=== PATIENT | male | born 1960 | race African-American/Black ===

== ENCOUNTER 2019-10-17 19:52 | Inpatient (IN) ==
[2019-10-17] MEDS ORDERED: ONDANSETRON 4 MG/2 ML VIAL IV STA (22:17)
[2019-10-17] MEDS ORDERED: SODIUM CHLORIDE 0.9% 500 ML IV STA (22:17)
[2019-10-17 23:00] LABS: Basophils % 0.2 % (0.0-0.8); Eosinophils % 0.1 % (0.00-10.9); Hematocrit 31.4 VOL% (42.0-52.0); Hemoglobin 9.5 GM/DL (14.0-18.0); Immature Granulocytes % 0.8 %; Immature Granulocytes Absolute 0.08 #; Lymphocytes # 1.2 10*3/uL (1.4-4.0); Lymphocytes % 12.5 % (21.2-54.2); Mean Corpuscular HGB Conc 30.3 GM/DL (32-36); Mean Corpuscular Volume 85.3 FL (87-102); Mean Platelet Volume 11.7 FL (9.6-12.0); Monocytes % 16.3 % (1.7-12.7); Neutrophils % 70.1 % (38.7-73.9); Platelet Count 266 T/CUMM (130-400); Red Blood Count 3.68 MC/CUMM (3.8-5.5); Red Cell Distribution Width 15.2 % (9.3-17.3); White Blood Count 9.8 T/CUMM (4-12)
[2019-10-17 23:18] LABS: INR 1.2; PT Patient Result 12.4 SECS (9.8-11.9); Partial Thromboplastin Time 28.2 SECS (23.9-33.8)
[2019-10-17 23:22] LABS: Alanine Aminotransferase 38 U/L (16-61); Albumin 2.5 G/DL (3.4-5.0); Alkaline Phosphatase 94 U/L (45-117); Aspartate Amino Transferase 49 U/L (0-37); Blood Urea Nitrogen 15 MG/DL (7-18); Calcium 8.9 MG/DL (8.5-10.1); Estimated Glom Filtration Rate 61 ML/MIN; Ferritin 1118.5 ng/ml (26-388); Glucose 106 MG/DL (74-106); Osmolality,Calculated 266.4 MOS/KG (273-304); Total Protein 9.8 G/DL (6.4-8.3); Troponin I < 0.015 NG/ML (0.00-0.045)
[2019-10-18] MEDS ORDERED: AZITHROMYCIN INJ 500 MG in SODIUM CHLORIDE 0.9% 250 ML IV STA (00:04)
[2019-10-18 00:22] LABS: Band Neutrophils 1 % (0-10); Lymphocytes 14 % (20-55); Segmented Neutrophils 70 % (50-85); Total Cells Counted 100
[2019-10-18 00:23] LABS: Anisocytosis 1+; Hypochromasia 1+; Platelet Estimate Normal
[2019-10-18 00:42] LABS: Apearance,Urine CLOUDY (Clear); Bilirubin,Urine Negative (Negative); Blood, Urine Negative (Negative); Glucose,Urine (UA) Negative (Negative); Ketones,Urine Negative (Negative); Mucus,Urine Occasional /LPF (Occasional); Nitrite,Urine Negative (Negative); Protein,Urine 100 MG/DL; RBC,Urine 55 /HPF (0-4); Urine Color Amber (Yellow); Urine Specific Gravity 1.019 (1.001-1.035); WBC,Urine 2478 /HPF (0-6)
[2019-10-18 01:26] LABS: Barbiturates Screen,Urine Negative (Negative); Benzodiazepines Screen,Urine Negative (Negative); Cannabinoid Screen,Urine Negative (Negative); Opiate Screen,Urine Negative (Negative); Phencyclidine Screen,Urine Negative (Negative)
[2019-10-18] MEDS ORDERED: ACETAMINOPHEN 325 MG TABLET PO PRN (02:59)
[2019-10-18] MEDS ORDERED: ONDANSETRON 4 MG/2 ML VIAL IV PRN (02:59)
[2019-10-18] MEDS ORDERED: DOCUSATE SODIUM 100 MG CAPSULE PO PRN (02:59)
[2019-10-18] MEDS: SODIUM CHLORIDE 0.9% 1,000 ML IV SCH ×3 (04:05→20:01)
[2019-10-18] MEDS: PIPERACILLIN/TAZOBACTAM 3,375 MG in SODIUM CHLORIDE 0.9% 100 ML IV SCH ×3 (04:10→20:00)
[2019-10-18] MEDS: ENOXAPARIN 40 MG/0.4 ML SYRINGE SUBCUT SCH (04:15)
[2019-10-18 08:20] LABS: Basophils % 0.1 % (0.0-0.8); Eosinophils % 0.5 % (0.00-10.9); Hematocrit 27.3 VOL% (42.0-52.0); Hemoglobin 8.2 GM/DL (14.0-18.0); Immature Granulocytes % 0.7 %; Immature Granulocytes Absolute 0.06 #; Lymphocytes # 1.1 10*3/uL (1.4-4.0); Lymphocytes % 13.4 % (21.2-54.2); Mean Corpuscular Volume 84.8 FL (87-102); Mean Platelet Volume 11.4 FL (9.6-12.0); Monocytes % 16.1 % (1.7-12.7); Neutrophils % 69.2 % (38.7-73.9); Platelet Count 239 T/CUMM (130-400); Red Blood Count 3.22 MC/CUMM (3.8-5.5); White Blood Count 8.2 T/CUMM (4-12)
[2019-10-18 08:40] LABS: Band Neutrophils 9 % (0-10); Eosinophils 1 % (0-10); Lymphocytes 13 % (20-55); Platelet Estimate Normal; Segmented Neutrophils 61 % (50-85); Total Cells Counted 100
[2019-10-18 08:41] LABS: Anisocytosis 1+; Hypochromasia 1+
[2019-10-18 08:49] LABS: % Iron Saturation 10.3 % (18-50); Calcium 8.2 MG/DL (8.5-10.1); Ferritin 972.1 ng/ml (26-388); Osmolality,Calculated 275.5 MOS/KG (273-304)
[2019-10-18 09:51] LABS: Sedimentation Rate-Westergren 122 MM/HR (0-20)
[2019-10-18 16:17] LABS: Folate 10.6 NG/ML (5.4-24.0); Vitamin B12 807 PG/ML (211-911)
[2019-10-18] MEDS: FERROUS SULFATE 325 MG TABLET PO SCH (22:15)
[2019-10-19] MEDS: SODIUM CHLORIDE 0.9% 1,000 ML IV SCH ×3 (04:00→21:00)
[2019-10-19] MEDS: PIPERACILLIN/TAZOBACTAM 3,375 MG in SODIUM CHLORIDE 0.9% 100 ML IV SCH ×3 (04:00→22:22)
[2019-10-19] MEDS: ENOXAPARIN 40 MG/0.4 ML SYRINGE SUBCUT SCH (04:00)
[2019-10-19 05:51] LABS: Basophils % 0.3 % (0.0-0.8); Eosinophils # 0.2 10*3/uL (0.0-0.87); Hematocrit 27.4 VOL% (42.0-52.0); Immature Granulocytes % 0.3 %; Immature Granulocytes Absolute 0.02 #; Lymphocytes # 1.2 10*3/uL (1.4-4.0); Lymphocytes % 20.3 % (21.2-54.2); Mean Corpuscular HGB Conc 29.2 GM/DL (32-36); Mean Corpuscular Volume 86.7 FL (87-102); Mean Platelet Volume 11.8 FL (9.6-12.0); Monocytes % 16.2 % (1.7-12.7); Neutrophils % 58.9 % (38.7-73.9); Platelet Count 222 T/CUMM (130-400); Red Blood Count 3.16 MC/CUMM (3.8-5.5); Red Cell Distribution Width 15.2 % (9.3-17.3); White Blood Count 5.8 T/CUMM (4-12)
[2019-10-19 06:09] LABS: Calcium 7.8 MG/DL (8.5-10.1); Osmolality,Calculated 280.1 MOS/KG (273-304)
[2019-10-19 06:28] LABS: Band Neutrophils 3 % (0-10); Eosinophils 7 % (0-10); Lymphocytes 16 % (20-55); Platelet Estimate Normal; Segmented Neutrophils 60 % (50-85); Total Cells Counted 100
[2019-10-19 06:29] LABS: Anisocytosis 1+; Hypochromasia Slight
[2019-10-19 06:30] LABS: Poikilocytosis Slight
[2019-10-19] MEDS: FERROUS SULFATE 325 MG TABLET PO SCH ×2 (08:32→21:00)
[2019-10-19] MEDS: TAMSULOSIN 0.4 MG CAPSULE PO SCH (08:32)
[2019-10-20] MEDS: ENOXAPARIN 40 MG/0.4 ML SYRINGE SUBCUT SCH (03:36)
[2019-10-20] MEDS: PIPERACILLIN/TAZOBACTAM 3,375 MG in SODIUM CHLORIDE 0.9% 100 ML IV SCH ×2 (03:36→13:02)
[2019-10-20] MEDS: SODIUM CHLORIDE 0.9% 1,000 ML IV SCH ×2 (04:36→22:53)
[2019-10-20] MEDS: FERROUS SULFATE 325 MG TABLET PO SCH ×2 (08:32→21:35)
[2019-10-20] MEDS: TAMSULOSIN 0.4 MG CAPSULE PO SCH (08:32)
[2019-10-20] MEDS ORDERED: cefTRIAXone 2,000 MG in SYRINGE 1 EACH IV SCH (15:00)
[2019-10-21] MEDS: SODIUM CHLORIDE 0.9% 1,000 ML IV SCH ×2 (02:48→11:47)
[2019-10-21] MEDS: ENOXAPARIN 40 MG/0.4 ML SYRINGE SUBCUT SCH (04:04)
[2019-10-21 06:04] LABS: Basophils % 0.2 % (0.0-0.8); Eosinophils # 0.5 10*3/uL (0.0-0.87); Eosinophils % 10.5 % (0.00-10.9); Hematocrit 27.5 VOL% (42.0-52.0); Hemoglobin 8.4 GM/DL (14.0-18.0); Immature Granulocytes % 0.5 %; Immature Granulocytes Absolute 0.02 #; Lymphocytes % 23.1 % (21.2-54.2); Mean Corpuscular HGB Conc 30.5 GM/DL (32-36); Mean Corpuscular Volume 83.6 FL (87-102); Monocytes % 14.9 % (1.7-12.7); Neutrophils % 50.8 % (38.7-73.9); Platelet Count 232 T/CUMM (130-400); Red Blood Count 3.29 MC/CUMM (3.8-5.5); White Blood Count 4.4 T/CUMM (4-12)
[2019-10-21 06:25] LABS: Albumin 1.8 G/DL (3.4-5.0); Bilirubin,Total 0.4 MG/DL (0.2-1.0); Calcium 8.4 MG/DL (8.5-10.1); Osmolality,Calculated 275.4 MOS/KG (273-304); Total Protein 7.4 G/DL (6.4-8.3)
[2019-10-21 06:29] LABS: Atypical Lymphocytes Few; Band Neutrophils 2 % (0-10); Eosinophils 4 % (0-10); Hypochromasia 1+; Lymphocytes 25 % (20-55); Microcytosis 1+; Segmented Neutrophils 55 % (50-85); Total Cells Counted 100
[2019-10-21 06:30] LABS: Ovalocytes Few; Platelet Estimate Normal
[2019-10-21 07:57] LABS: % Iron Saturation 32.3 % (18-50); Thyroid Stimulating Hormone 1.65 uIU/ml (0.358-3.74)
[2019-10-21] MEDS: FERROUS SULFATE 325 MG TABLET PO SCH (08:39)
[2019-10-21] MEDS: TAMSULOSIN 0.4 MG CAPSULE PO SCH (08:39)
[2019-10-21] MEDS ORDERED: POTASSIUM CHLORIDE 20 MEQ TABLET PO ONE (11:00)
[2019-10-21 12:12] VITALS: BP 151/85
[2019-10-21] MEDS ORDERED: cefTRIAXone 2,000 MG in SYRINGE 1 EACH IV ONE (13:07)
[2019-10-22 09:30] LABS: Hemoglobin A1 (Alkaline) 97.3 % (96.5-98.5); Hemoglobin A2 (Alkaline) 2.7 % (1.5-3.5)
== END 2019-10-21 14:11 | disposition home or self-care (01) | DRG 178 ==
LOC: N.ED 19:52 → N.EDINP 19:52 → SUATTDRO 10-18 02:31 → N.2E 10-18 02:58 → SUATTDRO 10-20 14:21
PROVIDERS: ADMIT Internal Medicine; ATTEND Internal Medicine Cardiovascular Disease